=== PATIENT | female | born 1955 | race Caucasian/White ===

== ENCOUNTER 2025-04-13 13:42 | Outpatient (CLI) | payer MEDICARE, BC, SELFPAY ==
[2025-04-13 15:30] LABS: Hematocrit 38.5 % (37-47); Hemoglobin 12.6 g/dL (12.0-15.0); Mean Corp Hgb Conc 32.7 g/dL (32-36); Mean Corpuscular Volume 91.7 fL (81-99); Mean Platelet Vol. 11.5 fl (6.2-12.0); Platelet Count 181 K/mm3 (150-450); RBC Distribution Width CV 12.0 % (11.6-14.6); RBC Distribution Width SD 40.5 fl (35.1-43.9); Red Blood Count 4.20 M/mm3 (4.2-5.4); White Blood Count 5.7 K/mm3 (4.4-11.0)
[2025-04-13 16:16] LABS: AST(SGOT) 21 U/L (<=31); Alanine Aminotransfer ALT/SGPT 16 U/L (<=34); Albumin, Serum 4.2 g/dL (3.4-4.8); Alkaline Phosphatase 60 U/L (35-104); Anion Gap 11 (5-15); BUN 23 mg/dL (4-19); BUN/Creat Ratio 27.5 RATIO (10-20); Calcium,Total 9.8 mg/dL (7.6-11.0); Carbon Dioxide 25.1 mmol/L (21.0-32.0); Chloride 106 mmol/L (98-108); Cholesterol 299 mg/dL (<=200); Globulin 2.5 g/dL (2.2-4.2); Glucose 93 mg/dL (70-99); Low Density Lipoprotein Calc. 199 mg/dL; Potassium 4.0 mmol/L (3.3-5.1); Triglycerides 80 mg/dL; Very Low Density Lipoprotein 16 mg/dL (5-40); cholesterol:hdl ratio screen 3.55
[2025-04-13 16:29] LABS: Vitamin D,25 Hydroxy 37.0 ng/mL (30-100)
[2025-04-13 16:55] LABS: FOLATES,SERUM (FOLIC ACID) 34.80 ng/mL (4.60-34.80)
[2025-04-19 17:08] LABS: Vitamin B1, Thiamine 118.6 nmol/L (66.5-200.0)
== END 2025-04-13 23:59 | disposition home or self-care (01) ==
LOC: MFPLAB 13:45
PROVIDERS: PCP Family Medicine; Referring Provider Family Medicine; Visit Provider Family Medicine
DX: Z13.220 Encounter for screening for lipoid disorders (principal); Z13.1 Encounter for screening for diabetes mellitus; R51.9 Headache, unspecified
CPT/HCPCS: 36415; 80053; 80061; 82306; 82746; 84425; 84443; 85027

== ENCOUNTER → 2025-05-03 | Outpatient (CLI) | payer MEDICARE, BC, SELFPAY ==
--- NOTE | 2025-05-03 17:26 | CT_ITS ---
PROCEDURE: BRAIN/HEAD WITHOUT CONTRAST 05/03/2025 REASON FOR EXAM: MEMORY CHANGE WITH HEADACHE TECHNIQUE: Procedure Code: CTBR Modality: CT Procedure: BRAIN/HEAD WITHOUT CONTRAST Coronal and Sagittal reconstruction series were provided. One or more dose reduction techniques were used (e.g., Automated exposure control, adjustment of the mA and/or kV according to patient size, use of iterative reconstruction technique. RADIATION DOSE SUMMARY: DLP: 587 mGycm COMPARISON: none FINDINGS: There is no acute infarct, intracranial hemorrhage, or mass effect. There is no hydrocephalus or significant midline shift. There is mild to moderate chronic microvascular ischemic changes and mild parenchymal volume loss. No acute, depressed calvarial fractures. No large scalp hematomas. The paranasal sinuses are clear. CT/Brain/Head without Contrast IMPRESSION: No acute intracranial process. Reading Location: [facility] [place]
== END | disposition home or self-care (01) ==
LOC: CT 17:22
PROVIDERS: PCP Family Medicine; Referring Provider Family Medicine; Visit Provider Family Medicine
DX: R51.9 Headache, unspecified (principal)
CPT/HCPCS: 70450

== ENCOUNTER → 2025-08-08 | Outpatient (CLI) | payer MEDICARE, BC, SELFPAY ==
[2025-08-08 12:33] LABS: Hematocrit 41.1 % (37-47); Hemoglobin 13.2 g/dL (12.0-15.0); Mean Corp Hgb Conc 32.1 g/dL (32-36); Mean Corpuscular Volume 93.2 fL (81-99); Mean Platelet Vol. 11.2 fl (6.2-12.0); Platelet Count 221 K/mm3 (150-450); RBC Distribution Width CV 12.3 % (11.6-14.6); RBC Distribution Width SD 42.3 fl (35.1-43.9); Red Blood Count 4.41 M/mm3 (4.2-5.4); White Blood Count 6.0 K/mm3 (4.4-11.0)
[2025-08-08 12:57] LABS: AST(SGOT) 23 U/L (<=31); Alanine Aminotransfer ALT/SGPT 17 U/L (<=34); Albumin, Serum 4.4 g/dL (3.4-4.8); Alkaline Phosphatase 65 U/L (35-104); Anion Gap 9 (5-15); BUN 13 mg/dL (4-19); BUN/Creat Ratio 16.6 RATIO (10-20); Calcium,Total 9.5 mg/dL (7.6-11.0); Carbon Dioxide 27.1 mmol/L (21.0-32.0); Chloride 105 mmol/L (98-108); Globulin 2.4 g/dL (2.2-4.2); Glucose 97 mg/dL (70-99); Potassium 3.6 mmol/L (3.3-5.1); Vitamin B12 580 pg/mL (180-914)
[2025-08-08 13:03] LABS: Lithium < 0.10 mmol/L (0.60-1.20)
[2025-08-10 12:08] LABS: Vitamin D 1,25-Dihydroxy 54.3 pg/mL (24.8-81.5)
[2025-08-12 08:09] LABS: Folate, Hemolysate Test 480.0 ng/mL (Not Estab.); Folate, RBC (Hct) Test 41.6 % (34.0-46.6); Folates, RBC Test 1154 ng/mL (>498); VITAMIN B6 3.3 ug/L (3.4-65.2); Vitamin B1, Thiamine 113.4 nmol/L (66.5-200.0)
== END | disposition home or self-care (01) ==
PROVIDERS: PCP Family Medicine; Visit Provider Psychiatry & Neurology Neurology
DX: F03.90 Unspecified dementia, unspecified severity, without behavioral disturbance, psychotic disturbance, mood disturbance, and anxiety (principal)
CPT/HCPCS: 36415; 80053; 80178; 82607; 82652; 82747; 84207; 84425; 85014; 85027